=== PATIENT | female | born 1945 | race Caucasian/White ===

== ENCOUNTER → 2016-04-17 | Outpatient (CLI) | payer OTHER, BC | LOC: MMPC 11:11 | PROVIDERS: ATTEND Surgery | DX: R59.0 Localized enlarged lymph nodes (principal) | CPT/HCPCS: 99201 ==

== ENCOUNTER 2016-04-21 08:05 | Day surgery (SDC) | payer OTHER, BC ==
[~2016-04-21 08:05] MED LIST: LIDOCAINE W/ SODIUM BICARB 0.5 ML SYR ONE; Lactated Ringers 1,000 ML PRIMARY IV ONE
[2016-04-21] MEDS ORDERED: MIDAZOLAM 5 MG/1 ML ONE (09:41)
[2016-04-21] MEDS ORDERED: fentaNYL Inj 100 MCG/2 ML VIAL ONE (09:42)
[2016-04-21] MEDS ORDERED: BUPIVACAINE 0.25% W/ EPI - 10 ML VIAL ONE (10:10)
--- NOTE | 2016-04-21 10:21 | GEN.OPNOTE ---
Operative Note Surgery Date: 04/21/16 Preoperative Diagnosis: Right groin adenopathy Postoperative Diagnosis: Right groin adenopathy Procedure: Right groin lymph node excision Surgeon: Blade Piedra MD Anesthesia Provider: Catherine Conrad CRNA Anesthesia Type: Local, MAC Estimated Blood Loss (mL): 1 Fluids: LR please see anesthesia notes in EMR Pathology: Lymph nodes sent Indications: Patient has for a groin adenopathy Findings: Medical lymph nodes Complications: None Operative Summary: Patient is brought in for placed supine position. Given IV sedation. Prepped draped sterile fashion. Timeout performed per protocols. I infiltrated quarter percent Marcaine and for local anesthetic. A skin incision overlying the medical lymph nodes. Dissected out and tied off the hospital distal ends of the lymph node and and with 2-0 Vicryl suture. This lymph node was dissected in half and half when RPMI another half was fresh. Closed the incision with 2-0 Vicryl simple sutures skin reapproximated using 4-0 Monocryl contents running septic restitch Steri-Strips are applied.
[2016-04-21 13:52] VITALS: RESP 16
[2016-04-21 13:55] VITALS: TEMP 97
== END 2016-04-21 11:55 | disposition home or self-care (01) ==
LOC: SDSC 08:05
PROVIDERS: ATTEND Surgery
DX: R59.0 Localized enlarged lymph nodes (principal)
CPT/HCPCS: 38500 ×2; J3010; J2250; J7120

== ENCOUNTER → 2016-04-28 | Outpatient (CLI) | payer OTHER, BC | LOC: MMPC 11:11 | PROVIDERS: ATTEND Surgery | DX: R22.41 Localized swelling, mass and lump, right lower limb (principal) ==

== ENCOUNTER → 2016-07-21 | Outpatient (CLI) | payer OTHER, BC ==
--- NOTE | 2016-07-22 09:30 | EKG ---
[facility] Measurements Intervals [place] Rate: 75 P: 63 [place]: 184 QRS: -40 QRSD: 74 T: 54 QT: 380 QTc: 408 Interpretive Statements SINUS RHYTHM WITH SINUS ARRHYTHMIA LEFT AXIS DEVIATION Compared to ECG 12/26/2014 14:55:15 Left axis deviation now present Electronically Signed On 07-22-16 12:56:59 MDT by Enrique Stanton [email or web address]
== END ==
LOC: EKG 14:37
PROVIDERS: ATTEND Physician Assistant Medical
DX: R07.9 Chest pain, unspecified (principal); I49.9 Cardiac arrhythmia, unspecified
CPT/HCPCS: 93005; 93010